=== PATIENT | female | born 2000 | race Hispanic/Latino ===

== ENCOUNTER 2022-03-26 16:15 | Emergency (ER) | payer SELFPAY ==
[2022-03-26] MEDS ORDERED: ACETAMINOPHEN 500 MG TAB PO ONE (21:13)
[2022-03-26] MEDS ORDERED: diphenhydrAMINE 25 MG CAP PO ONE (21:27)
--- NOTE | 2022-03-26 21:27 | Emergency Department Report ---
- General Chief Complaint: Sore Throat Stated Complaint: SOB/SORE THROAT Source: patient Mode of arrival: Ambulatory Limitations: No Limitations - History of Present Illness Initial Comments: Patient is a 21-year-old female with no past medical history who presents to the ED with complaint of acute onset persistent nasal and sinus congestion, frontal sinus pressure and headache, sore throat, mild dry cough and body aches and pains for the last 2 days, worse in the last 12 hours. Patient states that the congestion has been constant and persistent and worsened in the last 12 hours again she feels like being choked because of congestion. Patient states that her LMP was 1-1/2 months ago and is unsure whether she is or not. Patient denies dizziness, syncope, chest pain or shortness of breath, fever and chills, nausea and vomiting, diarrhea, dysuria, urinary frequency and urgency, abdominal pain, vaginal bleeding or vaginal discharge. MD Complaint: cough, sore throat, rhinorrhea, nasal congestion, sinus pain -: Sudden, days(s) (2) Severity: moderate Severity scale (0 -10): 4 Quality: aching Consistency: constant Improves With: nothing Worsens With: nothing Associated Symptoms: myalgias, headache, rhinorrhea, nasal congestion, sore throat, cough. denies: denies other symptoms, fever, chills, stiff neck, chest pain, shortness of breath, abdominal pain, nausea, vomiting, diarrhea, dysuria, rash, confusion, right sweats, epistaxis, hoarseness, ear pain, other Treatments Prior to Arrival: none - Related Data Previous Rx's Medication Instructions Recorded Last Taken Type Acetaminophen [Tylenol] 500 mg PO Q6HR PRN #30 tablet 03/26/22 Unknown Rx Azithromycin [Zithromax Z-SARATH] 250 mg PO DAILY #6 tab 03/26/22 Unknown Rx Cetirizine HCl [Zyrtec 10mg tab] 10 mg PO DAILY #30 tab 03/26/22 Unknown Rx Fluticasone [Flonase] 1 spray NS QDAY #1 bottle 03/26/22 Unknown Rx Allergies Allergy/AdvReac Type Severity Reaction Status Date / Time emollient combination no. 21 AdvReac Mild Unknown Verified 03/26/22 21:56 [From [employer]] Iodinated Contrast Media AdvReac Unknown Verified 03/26/22 21:57 ED Review of Systems ROS: Stated complaint: SOB/SORE THROAT Other details as noted in HPI Constitutional: denies: chills, fever Eyes: denies: eye pain, eye discharge, vision change ENT: throat pain, congestion, other (Grossly congested nasal passages). denies: ear pain Respiratory: cough. denies: shortness of breath, wheezing Cardiovascular: denies: chest pain, palpitations Endocrine: no symptoms reported Gastrointestinal: denies: abdominal pain, nausea, diarrhea Genitourinary: denies: urgency, dysuria, discharge Musculoskeletal: arthralgia, myalgia. denies: back pain, joint swelling Skin: denies: rash, lesions Neurological: headache (Frontal headache). denies: weakness, paresthesias Psychiatric: denies: anxiety, depression Hematological/Lymphatic: denies: easy bleeding, easy bruising ED Past Medical Hx - Medications Home Medications: Home Medications Medication Instructions Recorded Confirmed Last Taken Type Acetaminophen [Tylenol] 500 mg PO Q6HR PRN #30 tablet 03/26/22 Unknown Rx Azithromycin [Zithromax Z-SARATH] 250 mg PO DAILY #6 tab 03/26/22 Unknown Rx Cetirizine HCl [Zyrtec 10mg tab] 10 mg PO DAILY #30 tab 03/26/22 Unknown Rx Fluticasone [Flonase] 1 spray NS QDAY #1 bottle 03/26/22 Unknown Rx ED Physical Exam - General Limitations: No Limitations General appearance: alert, in no apparent distress - Head Head exam: Present: atraumatic, normocephalic, normal inspection - Eye Eye exam: Present: normal appearance, PERRL, EOMI Pupils: Present: normal accommodation - ENT ENT exam: Present: mucous membranes moist, TM's normal bilaterally, normal external ear exam, other (Grossly congested nasal passages; palpable frontal and maxillary sinus tenderness; mild erythematous oropharynx) - Neck Neck exam: Present: normal inspection, full ROM. Absent: tenderness, lymphadenopathy, thyromegaly - Respiratory Respiratory exam: Present: normal lung sounds bilaterally. Absent: respiratory distress, wheezes, rales, rhonchi, chest wall tenderness, accessory muscle use, prolonged expiratory - Cardiovascular Cardiovascular Exam: Present: regular rate, normal rhythm, normal heart sounds. Absent: systolic murmur, diastolic murmur, rubs, gallop - GI/Abdominal GI/Abdominal exam: Present: soft, normal bowel sounds. Absent: tenderness, gu arding, rebound, hyperactive bowel sounds, hypoactive bowel sounds, organomegaly - Extremities Exam Extremities exam: Present: normal inspection, full ROM, normal capillary refill. Absent: tenderness - Back Exam Back exam: Present: normal inspection, full ROM. Absent: tenderness, CVA tenderness (R), CVA tenderness (L), muscle spasm, paraspinal tenderness, vertebral tenderness - Neurological Exam Neurological exam: Present: alert, oriented X3, CN II-XII intact, normal gait, reflexes normal - Psychiatric Psychiatric exam: Present: normal affect, normal mood - Skin Skin exam: Present: warm, dry, intact, normal color. Absent: rash ED Course Vital Signs 03/26/22 03/26/22 17:40 22:02 Temperature 98.2 F Pulse Rate 78 Respiratory 20 16 Rate Blood Pressure 108/56 [Left] O2 Sat by Pulse 98 Oximetry ED Medical Decision Making - Medical Decision Making This is a 21-year-old female with no past medical history who presents to the ED with complaint of acute onset persistent nasal and sinus congestion, frontal sinus pressure and headache, sore throat, mild dry cough and body aches and pains for the last 2 days, worse in the last 12 hours. Patient states that the congestion has been constant and persistent and worsened in the last 12 hours again she feels like being choked because of congestion. Patient states that her LMP was 1-1/2 months ago and is unsure whether she is or not. In the ED, patient is alert and oriented x3 and is not in distress. Patient is hemodynamically stable. Urinalysis is unremarkable except for a positive urine test. Patient was discharged home on medications and advised to follow-up with her [employer] physician or primary care physician in 7 to 10 days for reevaluation. Patient was advised to return to the ED immediately if symptoms get worse. - Differential Diagnosis URI; rhinitis; sinusitis; pharyngitis; bronchitis Critical care attestation.: If time is entered above; I have spent that time in minutes in the direct care of this critically ill patient, excluding procedure time. ED Disposition Clinical Impression: Acute upper respiratory infection, test positive for incidental Acute frontal sinusitis Qualifiers: Recurrence: not specified as recurrent Qualified Code(s): J01.10 - Acute frontal sinusitis, unspecified Acute pharyngitis Qualifiers: Pharyngitis/tonsillitis etiology: unspecified etiology Qualified Code(s): J02.9 - Acute pharyngitis, unspecified Disposition: 01 HOME / SELF CARE / HOMELESS Is pt being admited?: No Does the pt Need Aspirin: No Condition: Stable Instructions: Cough, Adult, [id number], Sinusitis, Adult, [id number], Upper Respiratory Infection, Adult, [id number], Pharyngitis, [id number], Warning Signs During , First Trimester of Additional Instructions: Take medication with food, drink plenty of fluids and follow-up with your primary care physician in 7 to 10 days for reevaluation. Return to the ED immediately if symptoms get worse Prescriptions: Acetaminophen [Tylenol] 500 mg PO Q6HR PRN #30 tablet PRN Reason: Pain , Severe (7-10) Fluticasone [Flonase] 1 spray NS QDAY #1 bottle Azithromycin [Zithromax Z-SARATH] 250 mg PO DAILY #6 tab Cetirizine HCl [Zyrtec 10mg tab] 10 mg PO DAILY #30 tab Referrals: [facility] [Provider Group] - 7-10 days Forms: Work/School Release Form(ED) Time of Disposition: 21:28 Print Language: FILIPINO
[2022-03-26 22:03] LABS: Bilirubin,Urine NEG (Negative); Blood,Urine NEG (Negative); Color,Urine Yellow (Yellow); Mucus,Urine 3+ /HPF; Protein,Urine <15 mg/dL mg/dL (Negative); Urobilinogen,Urine < 2.0 mg/dL (<2.0)
[2022-03-26 22:36] LABS: HCG Qualitative,Urine Positive (Negative)
[2022-03-26 23:33] VITALS: BP 108/57
== END 2022-03-26 23:34 | disposition home or self-care (01) ==
LOC: ED 16:15
DX: O26.891 Other specified pregnancy related conditions, first trimester (principal); J06.9 Acute upper respiratory infection, unspecified; J01.10 Acute frontal sinusitis, unspecified; J02.9 Acute pharyngitis, unspecified; Z88.8 Allergy status to other drugs, medicaments and biological substances; Z91.041 Radiographic dye allergy status; Z3A.01 Less than 8 weeks gestation of pregnancy; Z79.899 Other long term (current) drug therapy
CPT/HCPCS: 81001; 81025; 99283